=== PATIENT | male | born 2000 | race Hispanic/Latino ===

== ENCOUNTER 2024-04-28 12:39 | Emergency (ER) | payer BC ==
[~2024-04-28] VITALS: Ht 175.3 cm; Wt 91.6 kg
[2024-04-28 13:16] LABS: BASOPHILS # (AUTO) 0.07 K/uL (0.00-0.20); BASOPHILS % (AUTO) 0.5 % (0.0-5.0); EOSINOPHILS # (AUTO) 0.14 K/uL (0.00-0.70); EOSINOPHILS % (AUTO) 1.1 % (0.0-8.0); HEMATOCRIT 43.8 % (42-54); IMMATURE GRANULOCYTE ABSOLUTE 0.07 K/uL (0-1); MEAN CORPUSCULAR HEMOGLOBIN 28.7 pg (27.0-33.0); MEAN CORPUSCULAR HGB CONC 33.3 g/dL (32.0-36.0); MEAN CORPUSCULAR VOLUME 86.1 fL (79-99); MONOCYTES # (AUTO) 1.1 K/uL (0.1-1.0); MONOCYTES % (AUTO) 8.7 % (3.0-13.0); NEUTROPHILS # (AUTO) 10.5 K/uL (1.8-7.7); NEUTROPHILS % (AUTO) 81.2 % (40.0-77.0); PLATELET COUNT (AUTO) 232 K/uL (130-400); RED BLOOD CELL COUNT(AUTO) 5.09 MIL/uL (4.50-6.20); RED CELL DISTRIBUTION WIDTH 12.4 % (11.0-15.5); WHITE BLOOD COUNT (AUTO) 12.9 K/uL (4.8-10.8)
[2024-04-28 13:26] LABS: CREATININE 1.2 mg/dL (0.5-1.3); POTASSIUM 3.7 mmol/L (3.5-5.1)
[2024-04-28] MEDS: guaiFENesin-DM 200/20MG 10ML PO ONE (13:27)
[2024-04-28] MEDS: dexaMETHasone SOD PHOSPHATE 4 MG/ML 1ML VIAL IM ONE (13:27)
[2024-04-28] MEDS ORDERED: BUDE90AE IH (14:38)
[2024-04-28] MEDS ORDERED: ALBUHFA IH (14:38)
[2024-04-28] MEDS ORDERED: GUAI10LI14 PO (14:38)
[2024-04-28] MEDS ORDERED: METH4TAB3 PO (14:38)
[2024-04-28 14:47] VITALS: BP 120/60; PULSE 76; RESP 17; TEMP 98.6; O2SAT 98
== END 2024-04-28 14:49 | disposition home or self-care (01) ==
LOC: EDH 12:39 → EDBD 12:39 → EDH 14:49
DX: J82.89 Other pulmonary eosinophilia, not elsewhere classified (principal); D72.829 Elevated white blood cell count, unspecified; Z20.822 Contact with and (suspected) exposure to COVID-19
CPT/HCPCS: 99284; 71045; 87426; 80048; 85025; 36415; 96372; J1100